=== PATIENT | male | born 1995 | race Caucasian/White ===

== ENCOUNTER 2016-08-26 15:17 | Emergency (ER) | payer SELFPAY ==
[~2016-08-26] VITALS: Ht 188 cm; Wt 120.8 kg
[2016-08-26 16:12] LABS: MCH 27.1 PG (29.0-34.0); MCHC 34.2 G/DL (30.0-36.0); MCV 79.3 FL (86-99); PLATELET COUNT 228 K/uL (156-360); RBC DIS.WIDTH-CV 13.4 % (11.8-14.6); RBC DIS.WIDTH-SD 38.3 % (39-53); RED BLOOD COUNT 5.42 M/uL (4.00-5.50); WHITE BLOOD COUNT 12.4 K/uL (4.1-10.2)
[2016-08-26 16:24] LABS: CHLORIDE 110 mEq/L (99-109)
[2016-08-26 16:25] LABS: POTASSIUM 4.1 mEq/L (3.7-5.4); SODIUM 139 mEq/L (136-147)
[2016-08-26 16:27] LABS: GLUCOSE 109 mg/dL (70-99)
[2016-08-26 16:28] LABS: ANION GAP 8 MEQ/L (2-14)
[2016-08-26 16:29] LABS: TOTAL BILIRUBIN 1.1 mg/dL (0.0-1.0)
[2016-08-26 16:30] LABS: ALKALINE PHOSPHATASE 87 IU/L (3-129)
[2016-08-26 16:31] LABS: GFR ESTIMATE (CALCULATED) > 59 mL/min/
[2016-08-26 16:32] LABS: DIRECT BILIRUBIN 0.4 mg/dL (0.0-0.3); UREA NITROGEN (BUN) 18 mg/dL (9-23)
[2016-08-26 16:33] LABS: ADD MIUA? NO; BILIRUBIN NEGATIVE; BLOOD NEGATIVE; COLOR YELLOW ((YELLOW)); GLUCOSE (STRIP) NEGATIVE; KETONES 5; LEUKOCYTES NEGATIVE; NITRITE NEGATIVE; PROTEIN (STRIP) NEGATIVE; SPECIFIC GRAVITY 1.028 (1.000-1.030); UCUL ADDED? NO; UROBILINOGEN 0.2 MG/DL (0.2-1.0)
[2016-08-26 16:34] LABS: LIPASE 13 U/L (1.0-51.0)
[2016-08-26] MEDS ORDERED: ZOFRAN4 MG PO (16:41)
[2016-08-26 17:59] VITALS: BP 98/51
== END 2016-08-26 17:59 | disposition home or self-care (01) ==
LOC: EME 15:17
PROVIDERS: Emergency Medicine
DX: E86.0 Dehydration (principal); R11.2 Nausea with vomiting, unspecified; R19.7 Diarrhea, unspecified; Z87.891 Personal history of nicotine dependence
CPT/HCPCS: 80048; 80076; 81003; 83690; 85027; 99281; 99284; J2405; J7030